=== PATIENT | male | born 1960 | race Caucasian/White ===

== ENCOUNTER 2018-04-02 08:34 | Day surgery (SDC) | payer BC ==
[~2018-04-02 08:34] MED LIST: Lactated Ringers 1,000 ML IV ONE
[2018-04-02] MEDS ORDERED: DIPRIVAN 200 MG/20 ML IV ONE (08:35)
[2018-04-02] MEDS: Lactated Ringers 1,000 ML IV SCH ×2 (09:19→09:30)
--- NOTE | 2018-04-02 09:42 | HP ---
DATE OF SURGERY: 04/02/2018 HISTORY OF PRESENT ILLNESS: The patient is a 58 year-old who over the last year has been choking when he eats meat. Question of mid to left esophagus area. He is having those symptoms. I feel he will benefit from upper endoscopy, possible biopsy and possible dilatation. He has had increased reflux over the past 16 months. He does have family history of father having narrowing that required dilatation. PAST MEDICAL HISTORY: He denies any chronic illnesses. PAST SURGICAL HISTORY: Finger surgery repair in the past. MEDICATIONS: Reflux medication in the past but apparently he does not take it on a regular basis. ALLERGIES: NKDA. FAMILY HISTORY: Cancer. SOCIAL HISTORY: No smoking or alcohol abuse. REVIEW OF SYSTEMS: Twelve systems reviewed per admission assessment. No chest pain or palpitations other systems negative or noncontributory as above and per preadmission questionnaire. PHYSICAL EXAMINATION: GENERAL: No acute distress. HEENT: Sclerae nonicteric. NECK: No JVD. CHEST: Equal excursion, nonlabored breathing. CVS: Regular rate and rhythm. ABDOMEN: Soft, nontender. EXTREMITIES: No significant edema. NEURO: Alert, oriented, moving extremities symmetrically. No gross motor deficits noted. IMPRESSION: Dysphagia. I feel he would benefit from upper endoscopy possible biopsy, possible dilatation pending operative findings. Risks and benefits explained in detail including but not limited to bleeding or infection, risk of bowel injury or perforation possibly requiring open procedure, risk of missed or nondiagnosis or incomplete exam possibly requiring other studies or procedures, upper GI study. If dilatation performed may need to be repeated again down the road. He also understands it could be more of a functional problems than actual narrowing and may not benefit from dilatation or dilatation may not improve this. He may need further work up and/or even medical treatment. He understands and agrees to the planned procedure and will proceed with outpatient EGD, possible biopsy and possible dilatation as an outpatient.
[2018-04-02 12:14] VITALS: O2SAT 100
[2018-04-02 12:16] VITALS: BP 114/74; PULSE 43
--- NOTE | 2018-04-02 14:26 | OP ---
SURGERY DATE/TIME: 04/02/2018 1042 PREOPERATIVE DIAGNOSIS: Dysphagia. POSTOPERATIVE DIAGNOSES: 1) Mild duodenitis. 2) Minimal to mild gastritis. 3) Mild erosive distal esophagitis. 4) Proximal distal symptomatic esophageal narrowing. PROCEDURES: 1) EGD with cold biopsy of small bowel. 2) Cold biopsy of the antrum to evaluate for Helicobacter pylori. 3) Cold biopsy distal esophagus to evaluate esophagitis. 4) Proximal esophageal balloon dilatation (size 20 balloon dilator). 5) Distal esophageal narrowing esophageal dilatation (size 20 balloon dilator). SURGEON: Dr. Andrez Ardon. CAST IRON DRAIN PIPE LAYER: ANESTHESIA: MAC. ESTIMATED BLOOD LOSS: Minimal. INDICATIONS: As noted above. Risks and benefits explained in detail and not limited to and consent obtained. DESCRIPTION OF PROCEDURE AND FINDINGS: The patient is taken to the operating room. MAC anesthesia introduced. After official time out and no disagreement with planned procedure, bite block positioned. Video gastroscope passed in the oropharynx. There was a little bit of a proximal esophageal narrowing and spasm. He was having symptoms in this area. There were no signs of any obvious mass to biopsy. Scope was able to be passed through here but as he is having symptoms it was felt he would benefit from dilatation. He had similar narrowed area without any obvious mass in the distal esophagus, distal esophageal narrowing and spasm. It was felt this would benefit from dilatation as he was having some symptoms in the mid and lower esophagus as well as proximally. The scope is passed through the patent pylorus to the junction of the second and third portion of the duodenum. There was some inflammation in the duodenum, some mild duodenitis. A cold biopsy taken for further evaluation. Good hemostasis noted. There were no signs of any ulcers. The scope pulled back in the stomach. He had some minimal to mild gastritis. Cold biopsy taken to evaluate for Helicobacter pylori particularly given his history of duodenitis. Good hemostasis noted. On retroflex there was no evidence of any significant hiatal hernia. Scope pulled back to gastroesophageal junction. Z-line fairly crisp. A little bit higher up there is some evidence of an old esophageal erosion. Cold biopsy taken for path. Otherwise the narrowed area in the proximal esophageal and distal esophagus area it was felt would benefit to dilate both of these areas. There was no obvious mass to biopsy. The scope passed back down into the stomach. Balloon catheter inserted and pulled back. First distal esophageal narrowing and gradually inflated initial stage 45 seconds and final stage size 20 balloon dilator for 2 minutes. The balloon is then released. It appeared more patent. The balloon was then pulled up to the proximal esophageal narrowing this to was inflated in stages. The initial stage for 45 seconds and final stage size 20 balloon dilator for 2 minutes. The balloon was then decompressed and withdrawn. The scope much more easily passed through here this passed through the proximal dilated area that was also much more widely patent. There was no evidence of any full thickness issues or injury. The scope was withdrawn. The patient tolerated the procedure well. There were no immediate complications. I will see if he has any family to discuss the findings with.
== END 2018-04-02 12:05 | disposition home or self-care (01) ==
LOC: SDC 08:34
PROVIDERS: ATTEND Surgery
DX: K29.80 Duodenitis without bleeding (principal); K29.70 Gastritis, unspecified, without bleeding; K22.10 Ulcer of esophagus without bleeding; K22.2 Esophageal obstruction
CPT/HCPCS: 87081; 88305; C1726; J2704

== ENCOUNTER 2024-11-18 08:26 | Day surgery (SDC) | payer OTHER ==
[2024-11-18] MEDS: Lactated Ringers 1,000 ML IV SCH (08:25)
[2024-11-18 08:47] VITALS: RESP 16
--- NOTE | 2024-11-18 09:12 | HP ---
HISTORY OF PRESENT ILLNESS: A 64-year-old with some dysphagia upper esophagus, worse recently. Had dilatation in the past, some sudden reflux at times relieved with Tums. It does not last long, unrelated to dysphagia episodes. He is also due for a followup screening colonoscopy. Denies any bloody stools. Family history negative for colon cancer. PAST MEDICAL HISTORY: BPH. HOME MEDICATIONS: Flomax. ALLERGIES: No known drug allergies. PAST SURGICAL HISTORY: Pancreas surgery, spinal fusion, rotator cuff, EGD with dilatation in the past. SOCIAL HISTORY: No smoking or alcohol abuse. FAMILY HISTORY: Lymphoma, lung cancer. REVIEW OF SYSTEMS: Twelve systems reviewed. No chest pain or palpitations. Other systems negative or noncontributory as above and per preadmission questionnaire. PHYSICAL EXAMINATION: GENERAL: Height 5 feet 7 inches. BMI 27.41. No acute distress. HEENT: Sclerae anicteric. NECK: No JVD. CHEST: Equal excursion, nonlabored breathing. CARDIOVASCULAR: Regular rate and rhythm. ABDOMEN: Soft. No peritoneal signs. SKIN: Dry. EXTREMITIES: No significant edema. NEUROLOGIC: Alert and oriented. Moving extremities symmetrically. PSYCHIATRIC: Appropriate mood and affect. RECTAL: Deferred until time of endoscopy exam. ASSESSMENT: Dysphagia. Needs EGD, possible biopsy, possible dilatation. Also needs followup screening colonoscopy. Risks explained in detail including bleeding and infection; risk of bowel injury or perforation possibly requiring other procedures; risk of missed or nondiagnosis or incomplete exam possibly requiring barium enema or other studies or procedures; general risk of anesthesia; risk of bowel prep, not limited to. Regarding the dilatation if accomplished, there is a possibility the dilatation may not improve his swallowing. May be more of a functional or neurologic problem than mechanical. If dilatation is performed and does improve swallowing, may need to be repeated again down the road. He understands and agreed to planned procedure. We will proceed with EGD, possible biopsy, possible dilatation outpatient, as well as followup screening colonoscopy.
[2024-11-18] MEDS ORDERED: Xylocaine-Mpf 2% 5 Ml Vial ONE (10:42)
[2024-11-18] MEDS ORDERED: Versed 2 MG/2 ML Injection ONE (10:42)
[2024-11-18] MEDS ORDERED: propofoL IV ONE ×3 (10:43→11:17)
[2024-11-18 12:09] VITALS: TEMP 98.4
[2024-11-18 12:13] VITALS: BP 145/83; PULSE 50; O2SAT 97
--- NOTE | 2024-11-19 11:18 | OP ---
SURGERY DATE/TIME: 11/18/2024 [id number] PREOPERATIVE DIAGNOSES: 1) ASA class 2. 2) History of dysphagia. 3) Need for screening colonoscopy. POSTOPERATIVE DIAGNOSES: 1) Ulcers antral and prepyloric area with some evidence of recent bleeding but no current active bleeding. 2) Gastritis. 3) Short segment of minimal distal inflammation distal esophagus. 4) Proximal esophageal narrowing and spasm without evidence of any mass. 5) Diverticulosis. 6) Small 3 mm polyp ascending colon. 7) Tortuous colon. PROCEDURES: 1) Esophagogastroduodenoscopy. 2) Cold biopsy antrum for H pylori. 3) Cold biopsy distal esophagus to evaluate for early inflammation. 4) Proximal esophageal balloon dilatation (size 20 balloon). 5) Colonoscopy to cecum with hot biopsy piecemeal polypectomy ascending colon polyp. SURGEON: Aneesh Ardon MD ANESTHESIA: MAC. ESTIMATED BLOOD LOSS: Minimal. INDICATIONS: Consent obtained. DESCRIPTION OF PROCEDURE AND FINDINGS: Patient was taken to the operating room. MAC anesthesia induced. After official time-out, no disagreement in planned procedure. Bite block positioned. Under MAC anesthesia, videogastroscope was easily passed down the oropharynx. There was some proximal esophageal narrowing and spasm without any evidence of any lesions or mass to biopsy. Given his symptoms there, it was felt that it warranted dilation at the end. Scope was able to be passed here, passed through the esophagus through the distal esophagus, through the patent pylorus to the junction of the third and fourth portions of duodenum. Duodenum was grossly unremarkable. Scope pulled back in the stomach. He had ulcers. The picture did not snap very well of the largest of the ulcers but he had ulcers with some black eschar from evidence of bleeding in the past without any current active bleeding. Cold biopsy was taken to evaluate for H pylori. On retroflex, the GE junction was snug against the scope. Scope pulled back up to the GE junction, was about 41 cm. There was short segment of a couple millimeters of some early inflammation or esophagitis. Cold biopsy taken for histology. There was no evidence of any masses. No evidence of any Schulz's on endoscopic view. Good hemostasis noted. Remainder of esophagus other than the narrowing up top was unremarkable. It was felt this warranted dilation. The scope was passed back down to the stomach. The balloon catheter was carefully inserted in the stomach in the open space and then pulled back up to the proximal esophageal narrowed area. The balloon was inflated first stage for 15 to 30 seconds, second stage for 15 to 30 seconds, and then final stage size 20 balloon dilator for 2 minutes. The balloon was then decompressed and withdrawn. The scope much more easily passed through there back into the stomach and then was withdrawn. There were minimal mucosal abrasions from the dilatation. There was no visible evidence of any full-thickness issues or injury. The patient tolerated this portion of the procedure well. Attention then turned to colonoscopy. Digital rectal exam did not reveal any rectal masses. Videocolonoscope inserted and passed up through the very tortuous sigmoid, descending, transverse, and ascending colon. Placed him on his back. Two different staff members applying compression. Finally, I was able to reach the cecum. The appendiceal orifice was now well visualized, photo documented. Scope was then carefully withdrawn over the next 9 or 10 minutes, stopping to remove at least a 3 mm polyp in the ascending colon. It was removed with hot biopsy polypectomy in a piecemeal fashion. Good hemostasis noted. It seemed to have been removed. There was no visible residual at this point. Scope was carefully withdrawn. There was some diverticulosis in the left colon. There were no signs of any large polyps, masses, or obstructing lesions. Prep overall was fair. A little bit of liquidy, semisolid stool scattered throughout the colon limiting exam for very small lesions. Scope was withdrawn. The patient tolerated the procedure well. Findings discussed with family out in the waiting area.
== END 2024-11-18 12:10 | disposition home or self-care (01) ==
LOC: SDC 08:26
PROVIDERS: ATTEND Surgery
DX: Z12.11 Encounter for screening for malignant neoplasm of colon (principal); R13.10 Dysphagia, unspecified; K25.9 Gastric ulcer, unspecified as acute or chronic, without hemorrhage or perforation; K29.70 Gastritis, unspecified, without bleeding; K20.90 Esophagitis, unspecified without bleeding; K22.2 Esophageal obstruction; K57.30 Diverticulosis of large intestine without perforation or abscess without bleeding; D12.2 Benign neoplasm of ascending colon
CPT/HCPCS: C1726; J2250; J2704

== ENCOUNTER 2024-12-14 12:22 | Emergency (ER) | payer OTHER ==
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
[2024-12-14 12:53] VITALS: TEMP 97.8
[2024-12-14] MEDS ORDERED: BACIGUENT PACKET ONE (12:59)
[2024-12-14 13:08] VITALS: O2SAT 97
[2024-12-14] MEDS: BACIGUENT PACKET TP ONE (13:11)
[2024-12-14] MEDS: XYLOCAINE 1% HCL 20 ML MDV IJ ONE (13:12)
[2024-12-14 13:46] VITALS: BP 134/89; PULSE 68; RESP 17
== END 2024-12-14 13:47 | disposition home or self-care (01) ==
LOC: ED 12:22
DX: S61.411A Laceration without foreign body of right hand, initial encounter (principal); W29.3XXA Contact with powered garden and outdoor hand tools and machinery, initial encounter; Z79.899 Other long term (current) drug therapy
CPT/HCPCS: 12001; 99282; 99283; A9270-GY

== ENCOUNTER 2025-01-27 09:28 | Day surgery (SDC) | payer OTHER ==
--- NOTE | 2025-01-27 07:30 | HP ---
HISTORY AND PHYSICAL HISTORY OF PRESENT ILLNESS: History of dysphagia of upper esophagus, where he originally had dilatation in the past; some acid reflux at times relieved with Tums, it does not so long, unrelated to dysphagia episodes; also he had history of polyps, screening colonoscopy. Denies any blood stools. Family history negative for colon cancer. PAST MEDICAL HISTORY: History of pneumonia in the past, sinus infection, heartburn, BPH. HOME MEDICATIONS: Flomax. ALLERGIES: No known drug allergies. PAST SURGICAL HISTORY: Cholecystectomy, skin cancer excised, pancreas, upper endoscopy, spinal fusion and rotator cuff surgery. SOCIAL HISTORY: No smoking or alcohol abuse. FAMILY HISTORY: Lymphoma, lung cancer. REVIEW OF SYSTEMS: Twelve systems reviewed. No chest pain or palpitations. Other systems negative or noncontributory as above and per preadmission questionnaire. PHYSICAL EXAMINATION: GENERAL: Height 5 feet 7 inches. BMI 27.4. No acute distress. HEENT: Sclerae anicteric. Extraocular movements are intact. NECK: No JVD. CARDIOVASCULAR: Regular rate and rhythm. RESPIRATORY: Equal excursion. Nonlabored breathing. ABDOMEN: Soft. SKIN: Dry. EXTREMITIES: No cyanosis or edema. NEUROLOGIC: Alert and oriented. Moving all extremities symmetrically. PSYCHIATRIC: Appropriate mood and affect. RECTAL: Deferred until time of endoscopy. ASSESSMENT: Dysphagia. This patient needs EGD, possible biopsy, possible dilatation as he has got dysphagia of upper esophagus. Risks explained in detail but not limited to bleeding, infection, risk of bowel injury or perforation, risk of no narrowing to dilate or a more functional or neurologic issue. He understands if dilatation performed and no improved swallowing may need to repeat it down the road. Risk of perforation possibly requiring transfer for stent placement or other open procedures, possibility of no improvement in symptoms possibly requiring other studies or workup or referrals. Otherwise, also we will proceed with followup screening colonoscopy. General risk of bleeding, infection, risk of bowel injury or perforation, risk of sedation or bowel prep, risk of incomplete exam possibly requiring barium enema, risk of perforation possibly requiring open procedure. We will proceed with screening colonoscopy as well as EGD, possible biopsy, possible dilatation as an outpatient. The patient underwent EGD, dilatation, and colonoscopy. He had ulcers at the time, that was done back in 2023 and now, new procedure given his ulcers and was on proton pump inhibitors and need followup of endoscopy, possible biopsy to evaluate ulcer healing. On 01/27/2025, we will proceed with EGD, possible biopsy to evaluate for ulcer healing as an outpatient. Otherwise, continue medications for BPH.
[2025-01-27 09:44] VITALS: RESP 18
[2025-01-27] MEDS: Lactated Ringers 1,000 ML IV SCH (09:52)
[2025-01-27] MEDS ORDERED: propofoL IV ONE (11:10)
[2025-01-27] MEDS ORDERED: Xylocaine-Mpf 2% 5 Ml Vial ONE (11:10)
[2025-01-27] MEDS ORDERED: ROBINUL ONE (11:17)
[2025-01-27 11:58] VITALS: TEMP 97.7; O2SAT 99
[2025-01-27 12:13] VITALS: BP 128/85; PULSE 55
--- NOTE | 2025-01-28 10:04 | OP ---
SURGERY DATE/TIME: 01/27/2025 [id number] PREOPERATIVE DIAGNOSIS: History of ulcers, need for followup endoscopy to evaluate for healing. POSTOPERATIVE DIAGNOSES: 1) Mild gastritis. 2) Healed areas of ulcers. PROCEDURE: Esophagogastroduodenoscopy with cold biopsy of antrum to evaluate for H pylori. SURGEON: Aneesh Ardon MD ANESTHESIA: General. ESTIMATED BLOOD LOSS: Minimal. INDICATIONS: Consent obtained. DESCRIPTION OF PROCEDURE AND FINDINGS: Patient was taken to endoscopy room. MAC anesthesia was induced. After official time-out, no disagreement in planned procedure. Videogastroscope passed down the esophagus through the patent pylorus to the junction of the third and fourth portions of the duodenum. The area of ulcer had healed. There were no signs of any active ulcers currently. Patient did have some gastric erythema and gastritis. Cold biopsy was taken to evaluate for H pylori. Good hemostasis noted. The scope was withdrawn. There were no immediate complications. We will see if family is available to discuss findings.
== END 2025-01-27 12:17 | disposition home or self-care (01) ==
LOC: SDC 09:28
PROVIDERS: ATTEND Surgery
DX: Z87.19 Personal history of other diseases of the digestive system (principal); K29.70 Gastritis, unspecified, without bleeding; Z80.1 Family history of malignant neoplasm of trachea, bronchus and lung
CPT/HCPCS: J2704